=== PATIENT | male | born 1985 | race Caucasian/White ===

== ENCOUNTER 2024-07-16 14:44 | Emergency (ER) | payer MEDICAID ==
[~2024-07-16] VITALS: Ht 170.2 cm; Wt 84.4 kg
[2024-07-16 15:13] VITALS: BP_SYST 138; PULSE 116; RESP 22; TEMP 98.3; O2SAT 96
[2024-07-16] MEDS ORDERED: THIAMINE HCL 200 MG/2 ML VIAL ONE (15:37)
[2024-07-16] MEDS: NACL 0.9% 1,000 ML IV ONE (15:50)
[2024-07-16] MEDS: LORazepam 2 MG/ML VIAL IVP ONE (15:51)
[2024-07-16] MEDS: THIAMINE HCL 100 MG in NS 50 ML IV ONE (15:51)
[2024-07-16 16:20] LABS: BASOPHILS % (AUTO) 0.2 % (0.0-2.0); EOSINOPHILS % (AUTO) 0.1 % (0.0-4.0); HEMATOCRIT 43.2 % (36-54); LYMPHOCYTES # (AUTO) 2.3 K/uL (1.0-5.5); LYMPHOCYTES % (AUTO) 25.3 % (20.5-51.5); MEAN CORPUSCULAR HEMOGLOBIN 30 pg (27-31); MEAN CORPUSCULAR HGB CONC 35 % (32-36); MEAN CORPUSCULAR VOLUME 86 fL (79.0-98.0); MONOCYTES # (AUTO) 0.7 K/uL (0.0-1.0); MONOCYTES % (AUTO) 7.5 % (1.7-9.3); NEUTROPHILS # (AUTO) 6.2 K/uL (1.8-7.7); NEUTROPHILS % (AUTO) 66.9 % (40.0-70.0); PLATELET COUNT (AUTO) 267 K/uL (130-430); RED BLOOD CELL COUNT(AUTO) 5.03 MIL/uL (4.2-6.2); RED CELL DISTRIBUTION WIDTH 14.1 % (9.0-15.0); WHITE BLOOD COUNT (AUTO) 9.3 K/uL (4.8-10.8)
[2024-07-16 16:25] LABS: ALBUMIN 4.5 g/dL (3.4-4.8); CALCIUM 8.7 mg/dL (8.4-11.0); CREATININE 1.22 mg/dL (0.55-1.30); POTASSIUM 3.6 mmol/L (3.5-5.1); TOTAL BILIRUBIN 0.5 mg/dL (0.0-1.0); TOTAL PROTEIN, SERUM 8.3 g/dL (6.4-8.3)
[2024-07-16] MEDS ORDERED: CHLO25CA10 PO (16:58)
[2024-07-16 17:18] VITALS: BP_SYST 138; PULSE 116; RESP 22; TEMP 98.3; O2SAT 96
== END 2024-07-16 17:14 | disposition home or self-care (01) ==
LOC: SED 14:44
DX: F10.129 Alcohol abuse with intoxication, unspecified (principal); S69.91XD Unspecified injury of right wrist, hand and finger(s), subsequent encounter; F15.90 Other stimulant use, unspecified, uncomplicated; Z71.6 Tobacco abuse counseling; Z88.8 Allergy status to other drugs, medicaments and biological substances; X58.XXXD Exposure to other specified factors, subsequent encounter; Y90.8 Blood alcohol level of 240 mg/100 ml or more
CPT/HCPCS: 99284; 96365; 96375; 80053; 85025; 36415; 73140; G0482; J2060; J3411